=== PATIENT | female | born 1955 | race Caucasian/White ===

== ENCOUNTER 2019-07-22 16:41 | Emergency (ER) | payer OTHER ==
--- NOTE | 2019-07-22 17:46 | EDM.PDOC ---
<Anupam Bates - Last Filed: 07/22/19 18:01> ED HPI GENERAL MEDICAL PROBLEM - General Chief Complaint: General Stated Complaint: LEG PAIN & SOB Time Seen by Provider: 07/22/19 17:35 Source of Information: Reports: Patient History Limitations: Reports: No Limitations - History of Present Illness INITIAL COMMENTS - FREE TEXT/NARRATIVE: 63-year-old female undergoing chemotherapy for breast cancer, [place] and for the last few days feels more short of breath than usual especially with activity like going up stairs. She also noted she has had some increased lower extremity edema, especially the left leg. She called her oncologist and they recommended she come in for an evaluation and assess for possible DVT, PE, or congestive failure anemia. While at rest she actually feels fine, no fevers or chills, nausea or vomiting, pleuritic pain or abdominal pain. No palpitations. Her last chemotherapy was July 05, she has copies of labs done at that time. Onset: Gradual Duration: Day(s): (2 to 3 days) Associated Symptoms: Reports: Shortness of Breath. Denies: Confusion, Fever/ Chills, Headaches, Loss of Appetite, Malaise Left Lower Posterior Leg Pain Score (Numeric/FACES): 2 - Related Data Allergies Allergy/AdvReac Type Severity Reaction Status Date / Time clindamycin Allergy Diarrhea Verified 07/22/19 17:06 Penicillins Allergy Rash Verified 07/22/19 17:06 Home Meds: Home Meds Acetaminophen [Tylenol] 325 mg PO Q4H PRN 07/22/19 [History] Dextran 70/Hypromellose [Artificial Tears] 1 each OP DAILY 07/22/19 [History] Sertraline [Zoloft] 10 mg PO DAILY 07/22/19 [History] Past Medical History Cardiovascular History: Reports: Other (See Below) Other Cardiovascular History: pt. gets an echo every 3 months for mild dilation of aortic sinus Psychiatric History: Reports: Depression Oncologic (Cancer) History: Reports: Breast - Infectious Disease History Infectious Disease History: Reports: Chicken Pox - Past Surgical History GI Surgical History: Reports: Other (See Below) Other GI Surgeries/Procedures: hx of c diff Female Surgical History: Reports: Hysterectomy Oncologic Surgical History: Reports: Biopsy of Breast, Mastectomy Social & Family History - Tobacco Use Smoking Status *Q: Never Smoker - Caffeine Use Caffeine Use: Reports: Coffee, Tea - Recreational Drug Use Recreational Drug Use: No ED ROS GENERAL - Review of Systems Review Of Systems: See Below (With activity) Constitutional: Denies: Fever, Chills, Malaise Respiratory: Reports: Shortness of Breath Cardiovascular: Denies: Chest Pain GI/Abdominal: Denies: Nausea, Vomiting : Reports: No Symptoms Skin: Reports: Bruising (Bruises fairly easily) Neurological: Denies: Headache ED EXAM, GENERAL - Physical Exam Exam: See Below Free Text/Narrative:: Patient is very comfortable, pulse 72 and regular, O2 sats 99% on room air and normal respirations. She is in a sinus rhythm on the monitor. Exam Limited By: No Limitations General Appearance: Alert, No Apparent Distress Head: Atraumatic Respiratory/Chest: No Respiratory Distress, Lungs Clear Cardiovascular: Regular Rate, Rhythm, No Murmur GI/Abdominal: Soft Extremities: Other (She has just a trace of lower extremity edema at the ankles , slightly more obvious on the left side. I cannot reproduce tenderness with palpation of the calf or popliteal area or thigh either side.) Neurological: Alert, Oriented Psychiatric: Normal Affect, Normal Mood Skin Exam: Warm, Dry, Other (A few scattered healing bruises on her arms, likely from recent IVs or blood tests) Course - Vital Signs Last Recorded V/S: Last Vital Signs Temp 36.7 C 07/22/19 17:14 Pulse 73 07/22/19 17:14 Resp 16 07/22/19 17:14 BP 150/78 H 07/22/19 17:14 Pulse Ox 99 07/22/19 17:14 - Orders/Labs/Meds Labs: Laboratory Tests 07/22/19 07/22/19 Range/Units 17:51 17:51 WBC 3.3 L (4.5-11.0) K/uL RBC 3.35 (3.30-5.50) M/uL Hgb 10.8 L (12.0-15.0) g/dL Hct 33.0 L (36.0-48.0) % MCV 99 H (80-98) fL MCH 32 H (27-31) pg MCHC 33 (32-36) % Plt Count 185 (150-400) K/uL Neut % (Auto) 53 (36-66) % Lymph % (Auto) 28 (24-44) % Letcher % (Auto) 18 H (2-6) % Eos % (Auto) 0 L (2-4) % Baso % (Auto) 1 (0-1) % Sodium 141 (140-148) mmol/L Potassium 3.2 L (3.6-5.2) mmol/L Chloride 105 (100-108) mmol/L Carbon Dioxide 26 (21-32) mmol/L Anion Gap 13.2 (5.0-14.0) mmol/L BUN 12 (7-18) mg/dL Creatinine 0.6 (0.6-1.0) mg/dL Est Cr Clr Drug Dosing 94.54 mL/min Estimated GFR (MDRD) > 60 (>60) Glucose 95 (74-106) mg/dL Calcium 8.3 L (8.5-10.1) mg/dL - Re-Assessments/Exams Free Text/Narrative Re-Assessment/Exam: 07/22/19 17:46 A 2 view chest x-ray along with CBC and BMP will be obtained. 07/22/19 18:01 Chest x-ray looks clear, CBC shows a hemoglobin of 10.8 which is compared to 12.3 2 weeks ago. An ultrasound of the lower extremity on the left side was ordered and care turned over to Dr. Ennis. Departure - Departure Disposition: Home, Self-Care 01 Clinical Impression: SOB (shortness of breath), Breast CA - Discharge Information Instructions: Shortness of Breath, Adult, [id number] Referrals: PCP,None [Primary Care Provider] - Forms: ED Department Discharge Care Plan Goals: rtc if symptoms should get worse, oncology will contact her tomorrow. cont same meds Sepsis Event Note - Evaluation Sepsis Screening Result: No Definite Risk - Focused Exam Date Exam was Performed: 07/22/19 Time Exam was Performed: 18:01 <Montse Ennis - Last Filed: 07/24/19 18:33> ED ROS GENERAL - Review of Systems Review Of Systems: See Below ED EXAM, GENERAL - Physical Exam Exam: See Below Course - Re-Assessments/Exams Free Text/Narrative Re-Assessment/Exam: 07/22/19 18:55 us on both legs was obtained which revealed no clots. Her chems look good. Her oncologist was contacted and they will get ahold of her tomorrow. Departure - Departure Time of Disposition: 18:56 Condition: Fair Sepsis Event Note - Focused Exam Date Exam was Performed: 07/24/19 Time Exam was Performed: 18:33
--- NOTE | 2019-07-26 11:26 | US ---
VL Duplex Lwr Ext Veins Ltd Lt INDICATION: Left leg swelling FINDINGS: Ultrasound examination of the lower extremity using Doppler and compressive technique demonstrates that the common femoral, femoral, and popliteal veins are patent, and compressible. The calf veins were segmentally visualized and are negative where seen. Augmentation is seen throughout IMPRESSION: Negative for deep venous thrombosis.
--- NOTE | 2019-07-26 11:27 | CR ---
CHEST: 2 view CLINICAL HISTORY:Dyspnea COMPARISON:None FINDINGS: The heart size, pulmonary vascularity and hilar structures are normal. No infiltrate effusion or pneumothorax is seen. Patient has a [id number] catheter from the left the jugular approach. The tip is in the superior vena cava atrial junction region IMPRESSION: No acute cardiopulmonary process.
== END 2019-07-22 19:05 | disposition home or self-care (01) ==
LOC: JP.ED 16:41
DX: R06.02 Shortness of breath (principal); C50.919 Malignant neoplasm of unspecified site of unspecified female breast; F32.9 Major depressive disorder, single episode, unspecified; Z79.899 Other long term (current) drug therapy; Z88.1 Allergy status to other antibiotic agents; Z88.0 Allergy status to penicillin
CPT/HCPCS: 36415; 71046; 71046-26; 80048; 85025; 93971-26-LT; 93971-LT; 99285-25